=== PATIENT | female | born 1970 | race Two or more races ===

== ENCOUNTER 2024-10-05 13:31 | Emergency (ER) | payer MEDICARE, MEDICAID, SELFPAY ==
[2024-10-05 13:38] VITALS: PULSE 94; RESP 20; O2SAT 99; BMI 41.7
--- NOTE | 2024-10-05 14:01 | EDNOTE_ITS ---
ED Wound/Laceration-RME/HPI General Chief Complaint: Hand/Wrist Problems Stated Complaint: FINGER LAC Time Seen by Provider: 10/05/24 14:02 Source: patient Arrival date/time: 10/05/24 13:31 53-year-old female with a history of hyperlipidemia presents to the emergency room with a chief complaint of a laceration to her left pinky finger that occurred while pruning her plants with a battery-operated home aid. Mode of arrival: ambulatory Limitations: no limitations Related Data Home Medications ?Medication ?Instructions ?Recorded ?Confirmed oxycodone 15 mg tablet 15 mg PO Q4H PRN Pain 10/11/22 10/11/22 ixekizumab 80 mg/mL subcutaneous 80 mg subcut Q1-2M 10/05/24 10/05/24 auto-injector Previous Rx's ?Medication ?Instructions ?Recorded apixaban 5 mg tablet 5 mg PO BID 1 month #60 tabs 10/15/22 atorvastatin 20 mg tablet 20 mg PO QDAY 30 days #30 tabs 10/15/22 baclofen 20 mg tablet 20 mg PO QID 30 days #120 tabs 10/15/22 bupropion HCl 200 mg tablet,12 hr 200 mg PO BID 30 days #60 ea 10/15/22 sustained-release folic acid 1 mg-calc 200 mg-D3 50 1 tab PO DAILY 30 days #30 tabs 10/15/22 mcg-magnes 100 mg-acetylcyst tablet (Folite) gabapentin 300 mg capsule 900 mg (3 x 300 mg) PO QID 30 days 10/15/22 #360 caps loratadine 10 mg tablet 10 mg PO QDAY 30 days #30 tabs 10/15/22 omeprazole 20 mg capsule,delayed 20 mg PO BID 30 days #60 caps 10/15/22 release pramipexole 1 mg tablet 1 mg PO QDAY 30 days #30 tabs 10/15/22 prednisone 1 mg tablet 1 mg PO QID 4 days #16 tabs 10/15/22 sennosides 8.6 mg tablet (senna) 8.6 mg PO BID 30 days #60 tabs 10/15/22 tizanidine 4 mg tablet 4 mg PO Q8H 30 days #90 tabs 10/15/22 zolpidem 5 mg tablet 5 mg PO QDAY 14 days #14 tabs 10/15/22 cephalexin 500 mg capsule 500 mg PO BID 7 days #14 caps 10/05/24 Allergies Allergy/AdvReac Type Severity Reaction Status Date / Time ANGELITA Inhibitors Allergy Swelling Verified 10/12/22 00:01 of Lip/Tongue/Throat Review of Systems Review of Systems Systems Reviewed: All systems reviewed, normal except as documented Constitutional Constitutional: Reports system reviewed and no additional complaints, except as documented, Denies fatigue, Denies fever(s), Denies headache(s) and Denies weakness Eyes Eyes: Reports system reviewed and no additional complaints, except as documented, Denies blurry vision and Denies change in vision ENT Ears, Nose, Mouth, and Throat: Reports system reviewed and no additional complaints, except as documented, Denies otalgia, Denies headache(s), Denies nasal congestion, Denies throat swelling and Denies vertigo Cardiovascular Cardiovascular: Reports system reviewed and no additional complaints, except as documented, Denies chest pain, Denies dyspnea and Denies dyspnea on exertion Respiratory Respiratory: Reports system reviewed and no additional complaints, except as documented, Denies chest congestion, Denies cough, Denies dyspnea, Denies dyspnea on exertion and Denies wheezing Gastrointestinal Gastrointestinal: Reports system reviewed and no additional complaints, except as documented, Denies abdominal pain, Denies cramping, Denies nausea and Denies vomiting Genitourinary Genitourinary: Reports system reviewed and no additional complaints, except as documented Musculoskeletal Musculoskeletal: Reports system reviewed and no additional complaints, except as documented and Denies back pain Integumentary/Breasts Skin/Breast: Reports system reviewed and no additional complaints, except as documented and Reports wounds Neurologic Neurologic: Reports system reviewed and no additional complaints, except as documented, Denies confusion, Denies headache(s), Denies lack of coordination, Denies vertigo and Denies weakness Psychiatric Psychiatric: Reports system reviewed and no additional complaints, except as documented, Denies anxiety, Denies confusion, Denies depression, Denies paranoia, Denies suicidal ideation and Denies tactile hallucinations Endocrine Endocrine: Reports system reviewed and no additional complaints, except as documented and Denies fatigue Hematologic/Lymphatic Hematologic/Lymphatic: Reports system reviewed and no additional complaints, except as documented and Denies lymphadenopathy Allergic/Immunologic Allergic/Immunologic: Reports system reviewed and no additional complaints, except as documented, Denies throat swelling, Denies urticaria and Denies wheezing Past Medical History Past Medical History NEUROLOGIC: Positive Neurological Disorders and Migraine CARDIAC: Positive Cardiac Disorders, Hypercholesterolemia, Hypertension and Hypotension; Negative Congestive Heart Failure RESPIRATORY: Negative Chronic Obstructive Pulmonary Disease (COPD) or Asthma GASTROINTESTINAL: Positive Gastroesophageal Reflux Disease GENITOURINARY: Negative Renal Disease MUSCULOSKELETAL: Positive Arthritis (OA) ENDOCRINE: Negative Diabetes Mellitus Type 1 or Diabetes Mellitus Type 2 HEMATOLOGIC: Positive Anemia (iron deficient); Negative Sickle Cell Disease PSYCHO/SOCIAL: Positive Psychiatric Problems, Depression and Anxiety Social History SMOKING STATUS: Never smoker SUBSTANCE USE: marijuana (CBD oil) ED Exam General Limitations: Present no limitations General appearance: Present alert and in no apparent distress Head Head exam: Present atraumatic Eye Eye exam: Present normal appearance, PERRL and EOMI ENT ENT exam: Present normal exam, normal oropharynx and mucous membranes moist Neck Neck exam: Present normal inspection, full ROM and trachea midline Chest Chest inspection: Present normal inspection and symmetric chest wall rise Respiratory Respiratory exam: Present normal lung sounds bilaterally Cardiovascular Cardiovascular exam: Present regular rate, normal rhythm and normal heart sounds Abdominal Exam Abdominal exam: Present soft and normal bowel sounds Extremities Exam Extremities exam: Present normal inspection and full ROM Expanded Upper Extremity Exam Shoulder exam: Present normal inspection Arm exam: Present normal inspection Elbow exam: Present normal inspection Forearm/Wrist exam: Present normal inspection Hand exam: Present laceration Hand L/R front image: 2 1. laceration (1 cm irregular laceration) Back Exam Back exam: Present normal inspection and full ROM Neurological Exam Neurological exam: Present alert, oriented X3 and CN II-XII intact Psychiatric Psychiatric exam: Present normal affect and normal mood Skin Skin exam: Present warm, dry, intact and normal color Course Quality Measures none Orders Category Date Time Status Set Up Suture Tray STAT Care 10/05/24 14:01 Completed Wound Care NOW Care 10/05/24 14:01 Completed Lidocaine 1% 20 ml [Xylocaine 1% 20 ML] Med 10/05/24 14:01 Discontinued 20 ml INFL X1 ONE Tet,Diphth,Pertuss(Acell)-Tdap [Boostrix Vacc] Med 10/05/24 14:01 Discontinued 0.5 ml IMI .ONCE ONE Vital Signs Vital signs: Vital Signs Temperature 98.3 F 10/05/24 14:17 Pulse Rate 94 10/05/24 14:17 Respiratory Rate 21 H 10/05/24 14:17 Blood Pressure 158/101 H 10/05/24 14:17 Pulse Oximetry (%) 99 10/05/24 14:17 Oxygen Delivery Method Room Air 10/05/24 14:17 O2 saturation 99% within normal limits Procedures -ED Laceration Laceration 1: Site: hand Side (If applicable): left Size (cm): 1 Description: flap and irregular Depth: simple, single layer and involves muscle layer Local Anesthetic: lidocaine 1% Amount of anesthesia used (mL): 5 Pre-repair: irrigated extensively Skin layer closed with: nylon and vicryl Size (cm): 4-0 Number of sutures: 10 Technique: simple, interrupted Subcutaneous layer closed with: vicryl Size: 5-0 Number of sutures: 1 Technique: simple, interrupted Wound / Laceration MDM Narrative MDM Narrative:: 53-year-old female with a history of hyperlipidemia presents to the emergency room with a chief complaint of a laceration to her left pinky finger that occurred while pruning her plants with a battery-operated home aid. The patient was brought in by ambulance the timing of injury was about 1 hour before arrival the patient cut her finger with a battery-operated home aid. Physical examination shows sensation is intact the patient has full range of motion there is no exposed tendon or foreign bodies. The wound was irrigated with normal saline. 5 mL of lidocaine was used to numb up the area. The wound was irrigated extensively with high-pressure saline. I placed one 4-0 Vicryl suture to close subcutaneous tissue and stop the bleeding. I then placed ten 4-0 nylon sutures to close and approximate the wound. A dressing was placed and the patient tolerated the procedure well. Patient was educated to keep the area clean and dry. Antibiotics are sent to the patient's pharmacy patient was given return precautions for any signs of infection swelling pain redness pus or fever. Patient was educated to follow-up with her primary care provider in 48 hours for wound recheck. Patient data External records reviewed:: [facility] previous records Clinical information provided by:: patient Social determinants that could affect healthcare access:: none Patient has the following chronic illnesses:: No chronic illness How is presenting disease/condition affected by chronic disease/condition?: no chronic disease Evaluation data The following diagnostics were reviewed and interpreted by me:: lab results and radiology exam(s) Lab and/or radiology exams considered but not ordered:: Labs and radiology exams considered and ordered Interpretation Summary: N/A Medications / Prescriptions Medications or Prescriptions considered but not ordered:: Medication given Medication administrations:: Medication Administration History Discontinued Medications Diphtheria/Tetanus/Acell Pertussis (Diphth,Pertuss(Acell),Tet Vac 0.5 Ml Vial) 0.5 ml IMi .ONCE ONE Stop: 10/05/24 14:02 Last Admin: 10/05/24 14:28 Dose: 0.5 ml Documented By: Lidocaine HCl (Lidocaine Hcl 1% 20 Ml Vial) 20 ml INFL X1 ONE Stop: 10/05/24 14:02 Last Admin: 10/05/24 14:28 Dose: 20 ml Documented By: Tetanus vaccination updated Consultations Consultation(s) initiated? (list below): No Diagnosis Wound Differential Diagnosis: laceration, abrasion and avulsion of skin Most likely diagnosis given after review of the tests above:: Laceration Admission Indicated Admission indicated?: not indicated Admission Request Was there a request for admission?: No Disposition Plan Disposition Plan: Discharge Discharge Attestation Discharge Attestation: The patient and all family members were given an opportunity to ask questions and understood the discharge instructions. Discharge instructions specifically effects, indications for sooner follow up or return to the emergency department, and the expected course of current diagnosis. Patient condition: Stable Discharge Plan Plan Patient Disposition: HOME (Self Care) Disposition Comment: Stable Prescriptions/Referrals Prescriptions/Med Rec: New cephalexin 500 mg capsule 500 mg PO BID 7 Days Qty: 14 0RF No Action oxycodone 15 mg tablet 15 mg PO Q4H PRN (Reason: Pain) Hold Instructions: Resume on 11/08/35. Do not take anymore Patient Comments: TAKE 1 TABLET BY MOUTH EVERY 4 HOURS FOR 5 DAYS NEEDED FOR PAIN NOT CONTROLLED BY OTHER MEDICATIONS pramipexole 1 mg tablet 1 mg PO QDAY 30 Days Qty: 30 0RF sennosides [senna] 8.6 mg tablet 8.6 mg PO BID 30 Days Qty: 60 0RF atorvastatin 20 mg tablet 20 mg PO QDAY 30 Days Qty: 30 0RF tizanidine 4 mg tablet 4 mg PO Q8H 30 Days Qty: 90 0RF Rx Instructions: TAKE 1 TABLET BY MOUTH EVERY 8 HOURS FOR 30 DAYS. NOT TO EXCEED 3 DOSES PER DAY baclofen 20 mg tablet 20 mg PO QID 30 Days Qty: 120 0RF prednisone 1 mg tablet 1 mg PO QID 4 Days Qty: 16 0RF gabapentin 300 mg Capsule 900 mg PO QID 30 Days Qty: 360 0RF omeprazole 20 mg capsule,delayed release(DR/EC) 20 mg PO BID 30 Days Qty: 60 0RF zolpidem 5 mg tablet 5 mg PO QDAY 14 Days Qty: 14 0RF loratadine 10 mg tablet 10 mg PO QDAY 30 Days Qty: 30 0RF bupropion HCl 200 mg tablet sustained-release 12 hr 200 mg PO BID 30 Days Qty: 60 0RF apixaban 5 mg Tablet 5 mg PO BID 30 Days Qty: 60 0RF Folite [id number] qd-ke-ait-mg Tablet 1 tab PO DAILY 30 Days Qty: 30 0RF ixekizumab 80 mg/mL Auto-Injector 80 mg SUBCUT Q1-2M Rx Instructions: Once a month Problem List Clinical Impression: Laceration of hand, left Patient/Caregiver Discharge Instructions Education Materials: ED Laceration Small or ... Additional Instructions: Please follow-up with your primary care provider in the next 24 to 48 hours. Antibiotics are sent to your pharmacy please pick them up and take them as indicated. Please keep the injury clean and dry. For any evidence of worsening signs or symptoms please return to emergency room immediately Print Language: Kinyarwanda Stand Alone Forms: Mitzy Award Info., Patient Portal Info Letter Vaccines Vaccines Given During Stay: TDaP PA/CASE INVESTIGATOR Supervising Physician PA/CASE INVESTIGATOR Supervising Physician: Dr Woodruff
[2024-10-05 14:17] VITALS: BP 158/101; PULSE 94; RESP 21; TEMP 36.8; O2SAT 99
[2024-10-05] MEDS: LIDOCAINE HCL 1% 20 ML VIAL INFL (14:28)
[2024-10-05] MEDS: DIPHTH,PERTUSS(ACELL),TET VAC 0.5 ML VIAL IMi (14:28)
== END 2024-10-05 16:01 | disposition home or self-care (01) ==
LOC: SERX 15:49
PROVIDERS: Emergency Provider Emergency Medicine
DX: S61.217A Laceration without foreign body of left little finger without damage to nail, initial encounter (principal); W29.8XXA Contact with other powered hand tools and household machinery, initial encounter; Y93.H2 Activity, gardening and landscaping; Z23 Encounter for immunization
CPT/HCPCS: 12001; 90471; 90715; 99283; J3490

== ENCOUNTER → 2025-06-28 | Outpatient (CLI) | payer MEDICARE, MEDICAID, SELFPAY ==
--- NOTE | 2025-06-28 | XR_ITS ---
Examination: PA chest single view TECHNIQUE: Upright PA chest single view Date and time: June 28, 2025, 1319 hours, comparison March 26, 2024. INDICATIONS: Onset hypertension beginning 6 months ago. FINDINGS: Minor rounding left ventricle Ectatic thoracic aorta. Lobulation right hemidiaphragm. No pneumonia or pulmonary edema. Prominent osteopenia IMPRESSION: No active disease
--- NOTE | 2025-06-28 13:00 | XR_ITS ---
Examination: Screening digital mammography, bilateral Computer aided detection 3-D breast Tomosynthesis, bilateral Date and time of exam: September 27, 2025, 1249 hours, compared to mammograms dating to October 09, 2010 Indication: Screening Technique: Nonmagnified MLO, CC views of the breasts to been obtained, reconstructed from 3-D Tomosynthesis images. R2 computer aided detection program utilized for evaluation of suspicious masses and/or abnormal calcifications. 3-D Tomosynthesis images obtained. Findings: Scattered areas of fibroglandular density. Benign calcifications. No interval suspicious masses Impression: BI-RADS category II: Benign Findings. Recommend 1 year follow-up mammogram.
== END | disposition home or self-care (01) ==
LOC: CDIM 12:41
PROVIDERS: PCP Family Medicine; Referring Provider Nurse Practitioner; Visit Provider Physician Assistant Medical
DX: Z12.31 Encounter for screening mammogram for malignant neoplasm of breast (principal); R92.323 Mammographic fibroglandular density, bilateral breasts; R92.1 Mammographic calcification found on diagnostic imaging of breast; I10 Essential (primary) hypertension
CPT/HCPCS: 71046; 77063; 77067